=== PATIENT | female | born 1950 | race Caucasian/White ===

== ENCOUNTER 2018-06-17 10:03 | Day surgery (SDC) | payer MEDICARE, BC ==
[~2018-06-17] VITALS: Ht 161.3 cm; Wt 63.6 kg
[~2018-06-17 10:03] MED LIST: CELE-193 PO; CLON-527 PO; EST1T PO; LEVO75TA PO; MULT-1179 PO; SUMA25TA35 PO; ZOLP12.52 PO
[2018-06-17 10:15] VITALS: BP 130/71
[2018-06-17] MEDS ORDERED: fentaNYL/PF 50MCG/1 ML 2ML syringe ONE (11:31)
[2018-06-17] MEDS ORDERED: MIDAZolam 5mg/5ml vial ONE (11:31)
[2018-06-17 12:15] VITALS: BP 112/64
[2018-06-17 12:25] VITALS: BP 105/60
[2018-06-17 12:35] VITALS: BP 111/56
[2018-06-17 12:45] VITALS: BP 108/64
== END 2018-06-17 13:15 | disposition home or self-care (01) ==
LOC: GI LAB 10:03
PROVIDERS: ATTEND Specialist
DX: D12.8 Benign neoplasm of rectum (principal); K59.09 Other constipation; K57.30 Diverticulosis of large intestine without perforation or abscess without bleeding; Z86.010 Personal history of colon polyps; Z88.1 Allergy status to other antibiotic agents; Z90.49 Acquired absence of other specified parts of digestive tract; Z90.710 Acquired absence of both cervix and uterus; Z90.13 Acquired absence of bilateral breasts and nipples; Z98.890 Other specified postprocedural states; Z79.899 Other long term (current) drug therapy; Z80.0 Family history of malignant neoplasm of digestive organs
CPT/HCPCS: 45380; 99153; G0500; J2250; J3010; J7030; 88305; A4620

== ENCOUNTER 2025-02-23 09:35 | Outpatient (CLI) | payer MEDICARE, BC ==
[~2025-02-23 09:35] MED LIST changes: -EST1T PO
== END 2025-02-23 23:59 | disposition home or self-care (01) ==
LOC: RAD 09:35
PROVIDERS: ATTEND Nurse Practitioner
DX: I65.23 Occlusion and stenosis of bilateral carotid arteries (principal); R79.89 Other specified abnormal findings of blood chemistry
CPT/HCPCS: 76700; 93880

== ENCOUNTER 2025-05-25 10:40 | Emergency (ER) | payer MEDICARE, BC ==
[~2025-05-25] VITALS: Ht 160 cm; Wt 71.8 kg
[~2025-05-25 10:40] MED LIST changes: -ZOLP12.52 PO; +[UNRECOGNIZED DRUG - CODE] PO
[2025-05-25 11:04] VITALS: TEMP 97.6
[2025-05-25 11:32] LABS: MEAN PLATELET VOLUME 7.9 FL (7.4-10.4); RED CELL DISTRIBUTION WIDTH 13.0 % (11.5-14.5)
[2025-05-25 11:49] LABS: CREATININE 0.99 MG/DL (0.40-0.90); TOTAL CARBON DIOXIDE 23.5 MMOL/L (24-32); eCRCL 41 ML/MIN; eGFR 55 ML/MIN
[2025-05-25 14:18] LABS: LEUKOCYTE ESTERASE ,URINE NEGATIVE (Neg); NITRITES, URINE NEGATIVE (Neg); OCCULT BLOOD,URINE NEGATIVE (Neg)
[2025-05-25 14:25] LABS: UA COLLECTION TYPE CLN CATCH MIDSTREAM
[2025-05-25 14:26] LABS: MUCUS STRANDS FEW /LPF (Neg); SQUAMOUS EPITHELIAL CELL,UR MODERATE /LPF (FEW)
[2025-05-25 14:27] LABS: CAL OXALATE CRYSTALS 3+ /HPF (NEGATIVE)
--- NOTE | 2025-05-25 14:27 | Physician Documentation ---
History of Present Illness Chief Complaint: Abdominal Pain Stated Complaint: POST PROCEDURE COMPLICATIONS Time Seen by MD: 13:53 Primary Medical Doctor: Blaze HUMPHRIES Mode of Arrival: Ambulatory HPI 75-year-old female presents to the ED with a complaint of left lower quadrant abdominal pain over the last 2-3 days which has increased in severity. States she had a recent bowel movement that was large and hard. He was seen by her primary today and her primary indicated that there was a concern for diverticulitis as the patient has had this before. pt has been afebrile. Additionally the patient had a colonoscopy just over one week ago. Day of Onset: May 25, 2025 Medication Reconciliation Allergies: Coded Allergies: erythromycin base (Verified Allergy, Unknown, 01/06/16) hydromorphone (Verified Allergy, Unknown, 05/25/25) Scheduled Celecoxib* (Celebrex*), 200 MG PO DAILY, (Reported) Clonazepam* (Klonopin*), 0.5 MG PO QAM, (Reported) Levothyroxine Sodium* (Synthroid*), 1 TAB PO DAILY, (Reported) Multivitamins,Therapeutic* (Theragran-M*), 1 EACH PO DAILY, (Reported) Prednisone (Prednisone), 1 TAB PO BID Zolpidem Tartrate (Ambien Cr), 1 TABLET PO HS, (Reported) Scheduled PRN Sumatriptan Succinate* (Imitrex Tab*), 4 TAB PO PRN PRN for headache, (Reported) Past Medical History Past Medical History: Migraine, Seizures, Hypothyroidism Past Surgical History: cholecystectomy Other Past Surgical History: bilateral mastectomy Patient History: (Cancer) Malignant carcinoid tumor FATHER, , Age: 66, Cause: Oral cancer MOTHER (had oral cancer that spread to brain ), , Age: 60, Cause: Brain cancer Alcohol Use: Rarely Drug Use: none Lives with: Family Lives In: Home Review of Systems All Other Systems at this time: Reviewed and Negative ROS As stated above in the HPI, otherwise all systems are reviewed and negative. Physical Exam Vital Signs: Temperature: 97.6, Source: Temporal, Heart Rate: 77, Respiratory Rate: 16, BP: 130/61, Pulse Oximetry: 98, Weight: 71.750 Oxygen Flow Rate: 0 Physical Exam General: Alert, no apparent distress. Cardiovascular: Regular rate and rhythm, no murmurs. Gastrointestinal: Soft, tender left lower quadrant, additional tenderness on the right lower quadrant Neurologic: Oriented x4. Psychiatric: Normal mood and affect. Skin: Normal color, warm and dry. No edema, no ecchymosis. Progress Results/Orders Results/Orders Vital Signs 05/25/25 05/25/25 11:04 13:05 Temp 97.6 Pulse 95 77 Resp 15 16 B/P (MAP) 126/68 130/61 (84) Pulse Ox 97 98 O2 Flow Rate 0 Laboratory Tests Test 05/25/25 11:23 05/25/25 13:55 White Blood Count 7.7 Red Blood Count 5.05 Hemoglobin 14.8 Hematocrit 43.0 Mean Corpuscular Volume 85.3 Mean Corpuscular Hemoglobin 29.4 Mean Corpuscular Hemoglobin Concent 34.5 Red Cell Distribution Width 13.0 Platelet Count 262 Mean Platelet Volume 7.9 Neutrophils (%) (Auto) 45.9 Lymphocytes (%) (Auto) 41.0 Monocytes (%) (Auto) 9.4 Eosinophils (%) (Auto) 2.6 Basophils (%) (Auto) 1.1 H Neutrophils # (Auto) 3.5 Lymphocytes # (Auto) 3.1 Monocytes # (Auto) 0.7 Eosinophils # (Auto) 0.2 Basophils # (Auto) 0.1 CBC Comment Sodium Level 143 Potassium Level 3.8 Chloride Level 109 H Carbon Dioxide Level 23.5 L Anion Gap 11 Blood Urea Nitrogen 16 Creatinine 0.99 H Estimated GFR/1.73 m2 55 BUN/Creatinine Ratio 16.2 Glucose Level 106 H Calcium Level 9.6 Total Bilirubin 0.3 Aspartate Amino Transf (AST/SGOT) 35 Alanine Aminotransferase (ALT/SGPT) 66 Alkaline Phosphatase 101 Total Protein 7.2 Albumin 3.7 Globulin 3.5 Albumin/Globulin Ratio 1.1 Lipase 29 Chemistry Comments Urine Comment Medical Decision Making Findings Patient was initially concerned about diverticulitis and a potential per secondary to recent colonoscopy. However she never presented with these exact symptoms that would be indicative of these differentials. CT scan did show no signs of perforation or diverticulitis how that however there was evidence of mild colitis. Be treating her with a corticosteroids and advised her to follow up in the outpatient setting. Her laboratory values also did not show any signs of acute infections or any other associated concerns Differential Dx:Considerations: Include: AAA, -Complete, - Incomplete, -Inevitable, -Missed, -Threatened, Abruptio placentae, Angina/AK, Aortic dissection, Appendicitis, Bowel obstruction, Cholangitis, Cholelithasis, Constipation, Diverticular disease, Esophageal ru pture, Esophagitis, Gastritis/PUD, Gastroenteritis, GI hemorrhage, Hernia, Hepatitis, Inflammatory BD, Ischemic bowel, Ovarian cyst/torsion, Pancreatitis, PID, Porphyria, Trauma, intraabdominal, Urinary obstruction, Urinary tract infection, Urolithiasis, Other Departure Disposition: HOME / SELF CARE / HOMELESS Impression: Primary Impression: Colitis Condition: Stable Discharge Instructions: Colitis Referrals: NO PRIMARY CARE PROVIDER (PCP) Prescriptions Prednisone (Prednisone) 10 Mg Tablet 1 TAB PO BID for 5 Days, #10 TAB Prov: BLADE AMBRIZ NP 05/25/25 Education Educated: Patient Educated regarding: diagnosis Signature Scribe Signature: x Attestation: Scribed for Blade [employer] Att[employer] by Blade Lewis NP . 05/25/25 16:11 BLADE AMBRIZ NP May 25, 2025 14:27
--- NOTE | 2025-05-25 15:39 | RADIOLOGY REPORT ---
Exam: CT CT ABDOMEN PELVIS History: recent colonoscopy + abd pain LLQ Comparison Study: None Technique: Multidetector spiral CT of the abdomen was performed from lung bases to pubic symphysis. I maging was performed without IV contrast. Axial, coronal and sagittal multiplanar reformats were obta ined from the axial data set by the technologist. Radiation Dose : 1. Abdomen/Pelvis: CTDIvol 26.5 mGy, DLP 1283.3 mGy*cm. Findings: Evaluation of solid organs is limited due to lack of intravenous contrast use. Lung Bases: No acute or significant lung base finding. Normal heart size. No pleural or pericardial effusion. Liver: Hepatic steatosis. Hepatomegaly. Gallbladder and Biliary Tree: Post cholecystectomy. Spleen: Unremarkable Pancreas: The pancreas is grossly normal in appearance. Adrenal Glands: Unremarkable Kidneys: Punctate bilateral nonobstructing renal stones. Bladder: Grossly unremarkable for degree of distention. Bowel: The stomach is grossly normal in appearance. Diverticulosis. Mild bowel wall thickening of th e descending colon. The appendix is not visualized; however, no secondary findings of acute appendici tis identified. Ascites: Absent Lymphadenopathy: No mesenteric, retroperitoneal or periportal lymphadenopathy. Abdominal Wall and Mesentery: Unremarkable. Vasculature: The visualized abdominal aorta is normal in size and caliber. Evaluation of abdominal a nd pelvic vessels is limited due to lack of intravenous contrast. Pelvic Organs: Hysterectomy. Pelvic pessary in-situ. Musculoskeletal: No aggressive focal bony lesions, acute fractures or dislocation. IMPRESSION: Possible mild colitis of the descending colon. Hepatic steatosis and hepatomegaly.
[2025-05-25] MEDS ORDERED: PRED10TA23 PO (16:09)
[2025-05-25 16:16] VITALS: BP 112/55; PULSE 62; RESP 15; O2SAT 95
== END 2025-05-25 16:24 | disposition home or self-care (01) ==
LOC: ER 10:41
DX: K52.9 Noninfective gastroenteritis and colitis, unspecified (principal); E03.9 Hypothyroidism, unspecified; G43.909 Migraine, unspecified, not intractable, without status migrainosus; Z88.1 Allergy status to other antibiotic agents; Z88.5 Allergy status to narcotic agent; Z90.49 Acquired absence of other specified parts of digestive tract; Z79.899 Other long term (current) drug therapy
CPT/HCPCS: 36415; 74176; 80053; 81001; 83690; 85025; 99284; J7512